=== PATIENT | female | born 1965 | race Hispanic/Latino ===

== ENCOUNTER 2021-11-15 09:49 | Emergency (ER) | payer BC, OTHER ==
[~2021-11-15] VITALS: Ht 157.5 cm; Wt 73.0 kg
[~2021-11-15 09:49] MED LIST: ASPIR 8181 MG PO; FISH OIL300 MG PO; LEVOTHYROXINE50 MCG PO
[2021-11-15 10:41] VITALS: BP 118/76
== END 2021-11-15 11:28 | disposition home or self-care (01) ==
LOC: ER 10:00
DX: R51.9 Headache, unspecified (principal); Z86.16 Personal history of COVID-19; E78.5 Hyperlipidemia, unspecified
CPT/HCPCS: 99282